=== PATIENT | male | born 1955 | race African-American/Black ===

== ENCOUNTER 2017-09-09 14:21 | Inpatient (IN) | payer OTHER ==
[2017-09-09 16:42] VITALS: BMI 20.5
--- NOTE | 2017-09-09 18:23 | HP ---
CIWA Score - CIWA Score Nausea/Vomitin-No Nausea/No Vomiting Muscle Tremors: 4-Moderate,w/Arms Extend Anxiety: 3 Agitation: 2 Paroxysmal Sweats: 4-Forehead w/Sweat Beads Orientation: 0-Oriented Tacttile Disturbances: 0-None Auditory Disturbances: 0-None Visual Disturbances: 2-Mild Sensitivity Headache: 2-Mild CIWA-Ar Total Score: 17 Admission ROS S - HPI Chief Complaint: "I don't feel good, I have the shakes, I am withdrawing real bad" Allergies/Adverse Reactions: Allergies Allergy/AdvReac Type Severity Reaction Status Date / Time No Known Allergies Allergy Verified 09/09/17 17:19 History of Present Illness: 62 yo male with hx nicotine dependence, cocaine and alcohol dependence presents here today with withdrawal symptoms for detox treatment. PMHX: HIV+ on medications, anxiety, depression. Denies suicidal / homicidal ideation or suicide attempts. Longest period sobriety 11 month, last detox 2014. Denies hx of seizures. Report hx of blackouts, last episode 10 years ago. Exam Limitations: No Limitations - Ebola screening Have you traveled outside of the country in the last 21 days: No Have you had contact with anyone from an Ebola affected area: No Have you been sick,other than usual withdrawal symptoms: No Do you have a fever: No - Review of Systems Constitutional: Chills, Loss of Appetite, Changes in sleep, Weakness, Unintentional Wgt. Loss EENT: reports: No Symptoms Reported Respiratory: reports: No Symptoms reported Cardiac: reports: No Symptoms Reported GI: reports: Poor Appetite, Poor Fluid Intake, Abdominal cramping Musculoskeletal: reports: Joint Pain Integumentary: reports: No Symptoms Reported Neuro: reports: Headache, Tingling, Tremors (generalize body trem), Weakness Endocrine: reports: Excessive Sweating Hematology: reports: No Symptoms Reported Psychiatric: reports: Orientated x3, Anxious Other Systems: Reviewed and Negative Patient History - Patient Medical History Hx Anemia: No Hx Asthma: No Hx Chronic Obstructive Pulmonary Disease (COPD): No Hx Cancer: No Hx Cardiac Disorders: No Hx Congestive Heart Failure: No Hx Hypertension: No Hx Hypercholesterolemia: No Hx Pacemaker: No HX Cerebrovascular Accident: No Hx Seizures: No Hx Dementia: No Hx Diabetes: No Hx Gastrointestinal Disorders: No Hx Liver Disease: No Hx Genitourinary Disorders: No Hx Sexually Transmitted Disorders: No Hx Renal Disease (ESRD): No Hx Thyroid Disease: No Hx Human Immunodeficiency Virus (HIV): Yes (on kaletra viread abacavir) Hx Hepatitis C: No Hx Depression: Yes Hx Suicide Attempt: No Hx Bipolar Disorder: No Hx Schizophrenia: No - Patient Surgical History Past Surgical History: No Hx Neurologic Surgery: No Hx Cataract Extraction: No Hx Cardiac Surgery: No Hx Lung Surgery: No Hx Breast Surgery: No Hx Breast Biopsy: No Hx Abdominal Surgery: No Hx Appendectomy: No Hx Cholecystectomy: No Hx Genitourinary Surgery: No Hx Section: No Hx Orthopedic Surgery: No Hx Hysterectomy: No Other Surgical History: RIGHT FOREARM SX DUE TO GLASS TRUAMA AT 18 YRS OLD. Anesthesia Reaction: No - PPD History Previous Implant?: Yes Documented Results: Negative w/proof Date: 03/10/15 PPD to be Administered?: Yes - Reproductive History Patient is a Female of Child Bearing Age (11 -55 yrs old): No - Smoking Cessation Smoking history: Current every day smoker Have you smoked in the past 12 months: Yes Aproximately how many cigarettes per day: 20 Hx Chewing Tobacco Use: No Initiated information on smoking cessation: Yes 'Breaking Loose' booklet given: 09/09/17 - Substance & Tx. History Hx Alcohol Use: Yes Hx Substance Use: Yes Substance Use Type: Alcohol, Cocaine Hx Substance Use Treatment: Yes ([facility] 2014) - Substances Abused Alcohol Route: Oral Frequency: Daily Amount used: liquor-1 pint, Age of first use: 14 Date of Last Use: 09/08/17 Cocaine Route: Smoking Frequency: Daily Amount used: 6 bags Age of first use: 36 Date of Last Use: 09/08/17 Family Disease History - Family Disease History Family Disease History: Diabetes: Mother, Heart Disease: Mother Admission Physical Exam S - Vital Signs Vital Signs: Vital Signs - 24 hr 09/09/17 16:40 Temperature 98.1 F Pulse Rate 105 H Respiratory 18 Rate Blood Pressure 122/70 - Physical General Appearance: Yes: Moderate Distress, Thin, Tremorous, Sweating HEENTM: Yes: EOMI, Hearing grossly Normal, Normal ENT Inspection, Pharynx Normal , Tm's normal, Rhinorrhea Respiratory: Yes: Chest Non-Tender, Lungs Clear, Normal Breath Sounds, No Respiratory Distress, No Accessory Muscle Use Neck: Yes: No masses,lesions,Nodules, Trachea in good position Breast: Yes: Breast Exam Deferred Cardiology: Yes: Regular Rhythm, Regular Rate Abdominal: Yes: Normal Bowel Sounds, Non Tender, Flat, Soft Genitourinary: Yes: Within Normal Limits Back: Yes: Muscle Spasm Musculoskeletal: Yes: full range of Motion, Gait Steady, Pelvis Stable Extremities: Yes: Normal Capillary Refill, Normal Inspection, Normal Range of Motion, Non-Tender 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 intact, Fully Oriented, Motor Strength 5/5, Other (tremors b/t upper extremities) Integumentary: Yes: Normal Color, Warm, Diaphoresis - Diagnostic (1) HIV (human immunodeficiency virus infection) Current Visit: Yes Status: Acute (2) Anxious mood Current Visit: Yes Status: Acute (3) Tremor due to drug withdrawal Current Visit: Yes Status: Acute (4) Alcohol dependence with withdrawal Current Visit: Yes Status: Acute Qualifiers: Complication of substance-induced condition: uncomplicated Qualified Code(s ): F10.230 - Alcohol dependence with withdrawal, uncomplicated (5) Cocaine dependence Current Visit: Yes Status: Chronic Qualifiers: Substance use status: uncomplicated Qualified Code(s): F14.20 - Cocaine dependence, uncomplicated (6) Weight decrease Current Visit: Yes Status: Acute Cleared for Admission [facility] - Detox or Rehab [facility] Level of Care: Medically Managed Detox Regimen/Protocol: Librium [facility] Breath Alcohol Content Breath Alcohol Content: 0 Urine Drug Screen - Results Drug Screen Negative: No Urine Drug Screen Results: BEBO-Cocaine
[2017-09-09] MEDS ORDERED: chlordiazePOXIDE HCL 25 MG CAPSULE PO ONE (18:30)
[2017-09-09] MEDS ORDERED: guaiFENesin/D-METHORPHAN HB 10 ML UNIT-DOSE CUPS PO PRN (18:30)
[2017-09-09] MEDS ORDERED: MAG HYDROX/AL HYDROX/SIMETH 30 ML UNIT-DOSE CUP PO PRN (18:30)
[2017-09-09] MEDS ORDERED: MENTHOL/PHENOL 1 EACH UD MM PRN (18:30)
[2017-09-09] MEDS ORDERED: P-EPHED 60MG/TRIPROLIDI 2.5MG TABLET PO PRN (18:30)
[2017-09-09] MEDS ORDERED: MAGNESIUM CITRATE 300 ML BOTTLE PO PRN (18:30)
[2017-09-09] MEDS ORDERED: chlordiazePOXIDE HCL 25 MG CAPSULE PO PRN (18:30)
[2017-09-09] MEDS ORDERED: NICOTINE POLACRILEX 2 MG GUM BC PRN (18:30)
[2017-09-09] MEDS ORDERED: MAGNESIUM HYDROX 2400MG/30ML ORAL SUSPENSION 30 ML CUP PO PRN (18:30)
[2017-09-09] MEDS ORDERED: LOPERAMIDE HCL 2 MG CAPSULE PO PRN (18:30)
[2017-09-09] MEDS ORDERED: hydrOXYzine PAMOATE 50 MG CAPSULE (FP) PO PRN (18:30)
[2017-09-09] MEDS: ACETAMINOPHEN 325 MG TABLET (FP) PO PRN (19:18)
[2017-09-09] MEDS ORDERED: MELATONIN 5 MG TABLETS PO PRN (22:00)
[2017-09-09] MEDS: THIAMINE HCL 100 MG TABLET (FP) PO SCH (22:06)
[2017-09-09] MEDS: BACLOFEN 10 MG TABLET (FP) PO SCH (22:07)
[2017-09-09] MEDS: IBUPROFEN 400 MG TABLET (FP) PO PRN (22:07)
[2017-09-09] MEDS: chlordiazePOXIDE HCL 25 MG CAPSULE PO SCH (22:49)
[2017-09-10] MEDS: chlordiazePOXIDE HCL 25 MG CAPSULE PO SCH ×5 (06:17→22:57)
[2017-09-10] MEDS: BACLOFEN 10 MG TABLET (FP) PO SCH ×3 (06:17→22:41)
[2017-09-10 08:47] LABS: URINE APPEARANCE TURBID; URINE BILIRUBIN NEGATIVE (<2.0 mg/dL); URINE BLOOD NEGATIVE (NEGATIVE); URINE GLUCOSE (UA) NEGATIVE (NEGATIVE); URINE KETONE NEGATIVE (NEGATIVE); URINE NITRITE NEGATIVE (NEGATIVE); URINE UROBILINOGEN 4.0 E.U/dl mg/dL (0.2-1.0)
[2017-09-10 09:05] LABS: URINE COLOR DK YELLOW; URINE LEUK ESTERASE 2+ (NEGATIVE); URINE PROTEIN 1+ (NEGATIVE)
[2017-09-10 09:12] LABS: EPI CELLS RARE /HPF (FEW); URINE BACTERIA MANY /hpf (NONE SEEN); URINE MUCUS MODERATE
[2017-09-10] MEDS: PRENATAL VITAMINS W/ FOLIC ACID TABLET (FP) PO SCH (09:56)
[2017-09-10] MEDS: NICOTINE 21 MG/24 HOURS TOPICAL PATCH TD SCH (09:56)
[2017-09-10] MEDS: IBUPROFEN 400 MG TABLET (FP) PO PRN (09:56)
[2017-09-10] MEDS ORDERED: PATIENT'S OWN MEDICATION (NON-FORMULARY) (Tenofovir Disoproxil Fumarate [Viread -] 300 MG) PO SCH (10:00)
[2017-09-10] MEDS ORDERED: RITONAVIR/LOPINAVIR 50MG/200MG 1 COMBO TABLET PO SCH (10:00)
[2017-09-10] MEDS ORDERED: ABACAVIR SULFATE 300 MG PO SCH ×2 (10:00→22:00)
[2017-09-10 10:50] LABS: HEMATOCRIT 39.8 % (35.4-49); HEMOGLOBIN 13.5 GM/dL (11.7-16.9); MCHC 34.1 g/dl (32.0-35.9); MEAN CELL VOLUME 99.7 fl (80-96); MEAN PLT VOLUME 9.4 fl (7.5-11.1); PLATELET COUNT 127 K/MM3 (134-434); RBC 3.99 M/mm3 (4.00-5.60); RDW 13.5 % (11.9-15.9); WHITE BLOOD COUNT 7.9 K/mm3 (4.0-10.0)
--- NOTE | 2017-09-10 10:54 | EKG ---
Test Reason : Blood Pressure : / mmHG Vent. Rate : 092 BPM Atrial Rate : 092 BPM P-R Int : 128 ms QRS Dur : 100 ms QT Int : 322 ms P-R-T Axes : 078 074 067 degrees QTc Int : 398 ms NORMAL SINUS RHYTHM BIATRIAL ENLARGEMENT ABNORMAL ECG NO PREVIOUS ECGS AVAILABLE Confirmed by DESIRE PEREZ MD ([id number]) on 09/10/2017 10:53:30 AM Referred By: Confirmed By:DESIRE PEREZ MD
[2017-09-10 11:05] LABS: CALCIUM 8.2 mg/dL (8.5-10.1); CHLORIDE 104 mmol/L (98-107); POTASSIUM 4.1 mmol/L (3.5-5.1); SODIUM 139 mmol/L (136-145)
[2017-09-10 11:10] LABS: ALBUMIN 3.1 g/dl (3.4-5.0); ALK PHOS 72 U/L (45-117); ANION GAP 8 (8-16); BILIRUBIN,TOTAL 0.6 mg/dL (0.2-1.0); BLOOD UREA NITROGEN 25 mg/dL (7-18); CO2 27 mmol/L (21-32); CREATININE 1.6 mg/dL (0.7-1.3); GLUCOSE,RANDOM 86 mg/dL (74-106); SGOT/AST 18 U/L (15-37); SGPT/ALT 15 U/L (12-78)
[2017-09-10] MEDS ORDERED: TENOFOVIR DISOPROXIL FUMARATE 300 MG TABLET PO SCH (12:05)
--- NOTE | 2017-09-10 12:08 | PN ---
[facility] CIWA - CIWA Score Nausea/Vomitin-No Nausea/No Vomiting Muscle Tremors: 4-Moderate,w/Arms Extend Anxiety: 4-Mod. Anxious/Guarded Agitation: 2 Paroxysmal Sweats: 1-Minimal Palms Moist Orientation: 0-Oriented Tacttile Disturbances: 3-Moderate Itch/Numb/Burn (BODY ACHES) Auditory Disturbances: 0-None Visual Disturbances: 0-None Headache: 0-None Present CIWA-Ar Total Score: 14 S Progress Note (SOAP) Subjective: ANXIETY,C/O PAIN ON ENTIRE BODY AND WEAKNESS.LOSS OF APPETITE. DENIES N/V/D. Objective: 09/10/17 12:04 Vital Signs Temperature 96.8 F L 09/10/17 09:25 Pulse Rate 65 09/10/17 09:25 Respiratory Rate 18 09/10/17 09:25 Blood Pressure 105/81 09/10/17 09:25 O2 Sat by Pulse Oximetry (%) Laboratory Last Values WBC 7.9 K/mm3 (4.0-10.0) D 09/10/17 07:00 RBC 3.99 M/mm3 (4.00-5.60) L 09/10/17 07:00 Hgb 13.5 GM/dL (11.7-16.9) 09/10/17 07:00 Hct 39.8 % (35.4-49) 09/10/17 07:00 MCV 99.7 fl (80-96) H 09/10/17 07:00 MCH 34.0 pg (25.7-33.7) H 09/10/17 07:00 MCHC 34.1 g/dl (32.0-35.9) 09/10/17 07:00 RDW 13.5 % (11.9-15.9) 09/10/17 07:00 Plt Count 127 K/MM3 (134-434) L 09/10/17 07:00 MPV 9.4 fl (7.5-11.1) 09/10/17 07:00 Sodium 139 mmol/L (136-145) 09/10/17 07:00 Potassium 4.1 mmol/L (3.5-5.1) 09/10/17 07:00 Chloride 104 mmol/L (98-107) 09/10/17 07:00 Carbon Dioxide 27 mmol/L (21-32) 09/10/17 07:00 Anion Gap 8 (8-16) 09/10/17 07:00 BUN 25 mg/dL (7-18) H D 09/10/17 07:00 Creatinine 1.6 mg/dL (0.7-1.3) H D 09/10/17 07:00 Creat Clearance w eGFR 43.87 (>60) 09/10/17 07:00 Random Glucose 86 mg/dL (74-106) 09/10/17 07:00 Calcium 8.2 mg/dL (8.5-10.1) L 09/10/17 07:00 Total Bilirubin 0.6 mg/dL (0.2-1.0) D 09/10/17 07:00 AST 18 U/L (15-37) 09/10/17 07:00 ALT 15 U/L (12-78) D 09/10/17 07:00 Alkaline Phosphatase 72 U/L (45-117) D 09/10/17 07:00 Total Protein 7.0 g/dl (6.4-8.2) 09/10/17 07:00 Albumin 3.1 g/dl (3.4-5.0) L 09/10/17 07:00 Urine Color Dk yellow 09/09/17 22:00 Urine Appearance Turbid 09/09/17 22:00 Urine pH 5.0 (5.0-8.0) 09/09/17 22:00 Ur Specific [place] 1.025 (1.001-1.035) 09/09/17 22:00 Urine Protein 1+ (NEGATIVE) H 09/09/17 22:00 Urine Glucose (UA) Negative (NEGATIVE) 09/09/17 22:00 Urine Ketones Negative (NEGATIVE) 09/09/17 22:00 Urine Blood Negative (NEGATIVE) 09/09/17 22:00 Urine Nitrite Negative (NEGATIVE) 09/09/17 22:00 Urine Bilirubin Negative (<2.0 mg/dL) 09/09/17 22:00 Urine Urobilinogen 4.0 e.u/dl mg/dL (0.2-1.0) 09/09/17 22:00 Ur Leukocyte Esterase 2+ (NEGATIVE) H 09/09/17 22:00 Urine WBC (Auto) 29 /hpf (3-5) 09/09/17 22:00 Urine RBC (Auto) 3 /hpf (0-3) 09/09/17 22:00 Ur Epithelial Cells Rare /HPF (FEW) 09/09/17 22:00 Urine Bacteria Many /hpf (NONE SEEN) 09/09/17 22:00 Urine Mucus Moderate 09/09/17 22:00 UA NOTED BUN/CR NOTED Assessment: 09/10/17 12:04 WITHDRAWAL SX Plan: CONTINUE DETOX CHANGE: VIREAD 300 MG PO Q48H. INCREASE PO FLUIDS REPEAT LABS
--- NOTE | 2017-09-10 12:39 | CONSULT ---
[facility] Psychiatric Consult - Data Date of interview: 09/10/17 Admission source: [facility] Identifying data: Readmission to [facility] for this 62 y/o AA male seeking detox treatment on for alcohol and cocaine (crack) dependence.Patient is ,a father of one,domiciled unemployed and supported on SSI benefits. Substance Abuse History: Confirmed by patient in this interview.Details in the current [facility] report that follows : Smoking history: Current every day smoker. Have you smoked in the past 12 months: Yes. Aproximately how many cigarettes per day: 20. Hx Chewing Tobacco Use: No. Initiated information on smoking cessation: Yes. 'Breaking Loose' booklet given: 09/09/17. - Substance & Tx. History. Hx Alcohol Use: Yes. Hx Substance Use: Yes. Substance Use Type: Alcohol, Cocaine. Hx Substance Use Treatment: Yes ([facility] 2014). - Substances Abused. Alcohol. Route: Oral. Frequency: Daily. Amount used: liquor-1 pint,. Age of first use: 14. Date of Last Use: 09/08/17. Cocaine. Route: Smoking. Frequency: Daily. Amount used: 6 bags. Age of first use: 36. Date of Last Use: 09/08/17 Medical History: HIV infection (on HAART medications),weight loss and chronic joint pain. Psychiatric History: Patient denies history of psychiatric hospitalizations or suicide attempts.No prior exposure to psychotropic medications.Mr santamaria denies past/present contact with psychiatric OPD care provider. Physical/Sexual Abuse/Trauma History: No history. Additional Comment: Urine Drug Screen Results: BEBO-Cocaine.Noted. Mental Status Exam - Mental Status Exam Alert and Oriented to: Time, Place, Person Cognitive Function: Good Patient Appearance: Well Groomed Mood: Withdrawn, Apprehensive Affect: Mood Congruent Patient Behavior: Sedated (mild sedation), Fatigued Speech Pattern: Clear, Delayed Voice Loudness: Moderately Soft/Quiet Thought Process: Intact, Goal Oriented Hallucinations: Denies Suicidal Ideation: Denies Homicidal Ideation: Denies Insight/Judgement: Poor Sleep: Poorly, Difficulty falling asleep Appetite: Poor, Weight loss Gait/Station: Other (not observed ; supine for duration of interview ; patient admits to experiencing difficulty to ambulate; uses a wheelchair) Psychiatric Findings - Problem List ([place] 1, 2,3) (1) Alcohol dependence with withdrawal Current Visit: Yes Status: Acute Qualifiers: Complication of substance-induced condition: uncomplicated Qualified Code(s ): F10.230 - Alcohol dependence with withdrawal, uncomplicated (2) Cocaine dependence Current Visit: Yes Status: Acute Qualifiers: Substance use status: uncomplicated Qualified Code(s): F14.20 - Cocaine dependence, uncomplicated (3) Nicotine dependence Current Visit: Yes Status: Acute (4) Substance induced mood disorder Current Visit: Yes Status: Acute (5) Insomnia Current Visit: Yes Status: Acute Comment: Mild. - Initial Treatment Plan Initial Treatment Plan: Psychoeducation.Sleep hygiene.Detoxification in progress.Insomnia is addressed with melatonin 5 mg po hs prn.Discussed with patient.Mr santamaria agrees with this careplan.Observation.Falls precautions.
[2017-09-10] MEDS: RITONAVIR/LOPINAVIR 50MG/200MG 1 COMBO TABLET PO SCH ×2 (12:49→22:42)
[2017-09-10] MEDS: TENOFOVIR DISOPROXIL FUMARATE 300 MG TABLET PO SCH (12:50)
[2017-09-10] MEDS: ABACAVIR SULFATE 300 MG TABLET PO SCH ×2 (12:52→22:41)
[2017-09-10] MEDS: ACETAMINOPHEN 325 MG TABLET (FP) PO PRN (18:08)
[2017-09-10 22:03] LABS: URINE APPEARANCE CLEAR; URINE BILIRUBIN NEGATIVE (<2.0 mg/dL); URINE BLOOD NEGATIVE (NEGATIVE); URINE COLOR YELLOW; URINE GLUCOSE (UA) NEGATIVE (NEGATIVE); URINE KETONE NEGATIVE (NEGATIVE); URINE LEUK ESTERASE TRACE (NEGATIVE); URINE NITRITE NEGATIVE (NEGATIVE); URINE UROBILINOGEN 4.0 E.U/dl mg/dL (0.2-1.0)
[2017-09-10 22:13] LABS: URINE PROTEIN 1+ (NEGATIVE)
[2017-09-10 22:37] LABS: URINE MUCUS RARE
[2017-09-10] MEDS: THIAMINE HCL 100 MG TABLET (FP) PO SCH (22:40)
[2017-09-11] MEDS: chlordiazePOXIDE HCL 25 MG CAPSULE PO SCH ×3 (06:00→18:35)
[2017-09-11] MEDS: BACLOFEN 10 MG TABLET (FP) PO SCH ×3 (07:01→22:53)
[2017-09-11] MEDS: ACETAMINOPHEN 325 MG TABLET (FP) PO PRN (07:07)
[2017-09-11] MEDS: RITONAVIR/LOPINAVIR 50MG/200MG 1 COMBO TABLET PO SCH ×2 (09:53→22:55)
[2017-09-11] MEDS: ABACAVIR SULFATE 300 MG TABLET PO SCH ×2 (09:53→22:53)
[2017-09-11] MEDS: PRENATAL VITAMINS W/ FOLIC ACID TABLET (FP) PO SCH (09:53)
[2017-09-11] MEDS: NICOTINE 21 MG/24 HOURS TOPICAL PATCH TD SCH (09:56)
[2017-09-11 10:54] LABS: CHLORIDE 109 mmol/L (98-107); SODIUM 141 mmol/L (136-145)
[2017-09-11 11:02] LABS: ALBUMIN 3.1 g/dl (3.4-5.0); ALK PHOS 79 U/L (45-117); ANION GAP 5 (8-16); BILIRUBIN,TOTAL 0.4 mg/dL (0.2-1.0); BLOOD UREA NITROGEN 20 mg/dL (7-18); CALCIUM 8.2 mg/dL (8.5-10.1); CO2 27 mmol/L (21-32); CREATININE 1.1 mg/dL (0.7-1.3); GLUCOSE,RANDOM 80 mg/dL (74-106); SGOT/AST 21 U/L (15-37); SGPT/ALT 25 U/L (12-78); TOT PROT 7.3 g/dl (6.4-8.2)
[2017-09-11 11:15] LABS: HEMATOCRIT 42.1 % (35.4-49); HEMOGLOBIN 14.3 GM/dL (11.7-16.9); MCHC 33.9 g/dl (32.0-35.9); MEAN CELL VOLUME 100.3 fl (80-96); MEAN PLT VOLUME 9.7 fl (7.5-11.1); PLATELET COUNT 121 K/MM3 (134-434); RDW 13.4 % (11.9-15.9); WHITE BLOOD COUNT 4.4 K/mm3 (4.0-10.0)
--- NOTE | 2017-09-11 16:48 | PN ---
[facility] CIWA - CIWA Score Nausea/Vomitin-No Nausea/No Vomiting Muscle Tremors: None Anxiety: 5 Agitation: 0-Normal Activity Paroxysmal Sweats: 3 Orientation: 2-Disoriented Date<2 days Tacttile Disturbances: 3-Moderate Itch/Numb/Burn Auditory Disturbances: 0-None Visual Disturbances: 2-Mild Sensitivity Headache: 0-None Present CIWA-Ar Total Score: 15 S Progress Note (SOAP) Subjective: Constipation, Cold sensations, Body Aches, Tremors, Anxious. Objective: PATIENT A & O X 2 (UNCERTAIN ABOUT CURRENT DAY / DATE). NO ACUTE DISTRESS. 09/11/17 16:46 Vital Signs Temperature 96.1 F L 09/11/17 13:14 Pulse Rate 59 L 09/11/17 13:14 Respiratory Rate 18 09/11/17 13:14 Blood Pressure 118/77 09/11/17 13:14 O2 Sat by Pulse Oximetry (%) Laboratory Tests 09/09/17 09/10/17 09/10/17 22:00 07:00 07:00 WBC 7.9 D RBC 3.99 L Hgb 13.5 Hct 39.8 MCV 99.7 H MCH 34.0 H MCHC 34.1 RDW 13.5 Plt Count 127 L MPV 9.4 Sodium 139 Potassium 4.1 Chloride 104 Carbon Dioxide 27 Anion Gap 8 BUN 25 H D Creatinine 1.6 H D Creat Clearance w eGFR 43.87 Random Glucose 86 Calcium 8.2 L Total Bilirubin 0.6 D AST 18 ALT 15 D Alkaline Phosphatase 72 D Total Protein 7.0 Albumin 3.1 L Urine Color Dk yellow Urine Appearance Turbid Urine pH 5.0 Ur Specific [place] 1.025 Urine Protein 1+ H Urine Glucose (UA) Negative Urine Ketones Negative Urine Blood Negative Urine Nitrite Negative Urine Bilirubin Negative Urine Urobilinogen 4.0 e.u/dl Ur Leukocyte Esterase 2+ H Urine WBC (Auto) 29 Urine RBC (Auto) 3 Ur Epithelial Cells Rare Urine Bacteria Many Urine Mucus Moderate 09/10/17 09/11/17 09/11/17 Unknown 07:00 07:00 WBC 4.4 D RBC 4.20 Hgb 14.3 Hct 42.1 MCV 100.3 H MCH 34.0 H MCHC 33.9 RDW 13.4 Plt Count 121 L MPV 9.7 Sodium 141 Potassium 4.0 Chloride 109 H Carbon Dioxide 27 Anion Gap 5 L BUN 20 H Creatinine 1.1 D Creat Clearance w eGFR > 60 Random Glucose 80 Calcium 8.2 L Total Bilirubin 0.4 D AST 21 ALT 25 D Alkaline Phosphatase 79 Total Protein 7.3 Albumin 3.1 L Urine Color Yellow Urine Appearance Clear Urine pH 5.0 Ur Specific [place] 1.028 Urine Protein 1+ H Urine Glucose (UA) Negative Urine Ketones Negative Urine Blood Negative Urine Nitrite Negative Urine Bilirubin Negative Urine Urobilinogen 4.0 e.u/dl Ur Leukocyte Esterase Trace Urine WBC (Auto) 12 Urine RBC (Auto) 1 Ur Epithelial Cells Urine Bacteria Urine Mucus Rare LABS NOTED. Assessment: 09/11/17 16:47 WITHDRAWAL SYMPTOMS. Plan: CONTINUE DETOX. INCREASE DAILY PO FLUID INTAKE.
[2017-09-11] MEDS: THIAMINE HCL 100 MG TABLET (FP) PO SCH (22:53)
[2017-09-11] MEDS: chlordiazePOXIDE 5 MG CAPSULE PO SCH (22:54)
[2017-09-12] MEDS: BACLOFEN 10 MG TABLET (FP) PO SCH ×3 (06:08→22:40)
[2017-09-12] MEDS: chlordiazePOXIDE 5 MG CAPSULE PO SCH ×4 (06:08→17:48)
[2017-09-12] MEDS: RITONAVIR/LOPINAVIR 50MG/200MG 1 COMBO TABLET PO SCH ×2 (11:04→22:39)
[2017-09-12] MEDS: PRENATAL VITAMINS W/ FOLIC ACID TABLET (FP) PO SCH (11:04)
[2017-09-12] MEDS: ABACAVIR SULFATE 300 MG TABLET PO SCH ×2 (11:05→22:39)
[2017-09-12] MEDS: SULFAMETHOXAZOLE/TRIMETHOPRIM 800MG/160MG D.S. TABLET PO SCH ×2 (11:06→22:39)
[2017-09-12] MEDS: NICOTINE 21 MG/24 HOURS TOPICAL PATCH TD SCH (11:06)
[2017-09-12] MEDS: TENOFOVIR DISOPROXIL FUMARATE 300 MG TABLET PO SCH (12:29)
--- NOTE | 2017-09-12 13:21 | PN ---
[facility] Progress Note (SOAP) Subjective: PT IS OOB AMBULATING WITH NO ACUTE DISTRESS. MUCH IMPROVED TODAY AND WEAKNESS RESOLVING. PT STATES WAS ON BACTRIM FOR ABNORMAL UA AND REQUESTS TO CONTINUE. Objective: 09/12/17 13:16 Vital Signs Temperature 97.8 F 09/12/17 09:13 Pulse Rate 82 09/12/17 09:13 Respiratory Rate 18 09/12/17 09:13 Blood Pressure 127/78 09/12/17 09:13 O2 Sat by Pulse Oximetry (%) Laboratory Last Values WBC 4.4 K/mm3 (4.0-10.0) D 09/11/17 07:00 RBC 4.20 M/mm3 (4.00-5.60) 09/11/17 07:00 Hgb 14.3 GM/dL (11.7-16.9) 09/11/17 07:00 Hct 42.1 % (35.4-49) 09/11/17 07:00 MCV 100.3 fl (80-96) H 09/11/17 07:00 MCH 34.0 pg (25.7-33.7) H 09/11/17 07:00 MCHC 33.9 g/dl (32.0-35.9) 09/11/17 07:00 RDW 13.4 % (11.9-15.9) 09/11/17 07:00 Plt Count 121 K/MM3 (134-434) L 09/11/17 07:00 MPV 9.7 fl (7.5-11.1) 09/11/17 07:00 Sodium 141 mmol/L (136-145) 09/11/17 07:00 Potassium 4.0 mmol/L (3.5-5.1) 09/11/17 07:00 Chloride 109 mmol/L (98-107) H 09/11/17 07:00 Carbon Dioxide 27 mmol/L (21-32) 09/11/17 07:00 Anion Gap 5 (8-16) L 09/11/17 07:00 BUN 20 mg/dL (7-18) H 09/11/17 07:00 Creatinine 1.1 mg/dL (0.7-1.3) D 09/11/17 07:00 Creat Clearance w eGFR > 60 (>60) 09/11/17 07:00 Random Glucose 80 mg/dL (74-106) 09/11/17 07:00 Calcium 8.2 mg/dL (8.5-10.1) L 09/11/17 07:00 Total Bilirubin 0.4 mg/dL (0.2-1.0) D 09/11/17 07:00 AST 21 U/L (15-37) 09/11/17 07:00 ALT 25 U/L (12-78) D 09/11/17 07:00 Alkaline Phosphatase 79 U/L (45-117) 09/11/17 07:00 Total Protein 7.3 g/dl (6.4-8.2) 09/11/17 07:00 Albumin 3.1 g/dl (3.4-5.0) L 09/11/17 07:00 Urine Color Yellow 09/10/17 Unknown Urine Appearance Clear 09/10/17 Unknown Urine pH 5.0 (5.0-8.0) 09/10/17 Unknown Ur Specific [place] 1.028 (1.001-1.035) 09/10/17 Unknown Urine Protein 1+ (NEGATIVE) H 09/10/17 Unknown Urine Glucose (UA) Negative (NEGATIVE) 09/10/17 Unknown Urine Ketones Negative (NEGATIVE) 09/10/17 Unknown Urine Blood Negative (NEGATIVE) 09/10/17 Unknown Urine Nitrite Negative (NEGATIVE) 09/10/17 Unknown Urine Bilirubin Negative (<2.0 mg/dL) 09/10/17 Unknown Urine Urobilinogen 4.0 e.u/dl mg/dL (0.2-1.0) 09/10/17 Unknown Ur Leukocyte Esterase Trace (NEGATIVE) 09/10/17 Unknown Urine WBC (Auto) 12 /hpf (3-5) 09/10/17 Unknown Urine RBC (Auto) 1 /hpf (0-3) 09/10/17 Unknown Ur Epithelial Cells Rare /HPF (FEW) 09/09/17 22:00 Urine Bacteria Many /hpf (NONE SEEN) 09/09/17 22:00 Urine Mucus Rare 09/10/17 Unknown RPR Titer Nonreactive (NONREACTIVE) 09/10/17 07:00 Laboratory Tests 09/09/17 09/10/17 09/10/17 22:00 07:00 07:00 WBC 7.9 D RBC 3.99 L Hgb 13.5 Hct 39.8 MCV 99.7 H MCH 34.0 H MCHC 34.1 RDW 13.5 Plt Count 127 L MPV 9.4 Sodium 139 Potassium 4.1 Chloride 104 Carbon Dioxide 27 Anion Gap 8 BUN 25 H D Creatinine 1.6 H D Creat Clearance w eGFR 43.87 Random Glucose 86 Calcium 8.2 L Total Bilirubin 0.6 D AST 18 ALT 15 D Alkaline Phosphatase 72 D Total Protein 7.0 Albumin 3.1 L Urine Color Dk yellow Urine Appearance Turbid Urine pH 5.0 Ur Specific [place] 1.025 Urine Protein 1+ H Urine Glucose (UA) Negative Urine Ketones Negative Urine Blood Negative Urine Nitrite Negative Urine Bilirubin Negative Urine Urobilinogen 4.0 e.u/dl Ur Leukocyte Esterase 2+ H Urine WBC (Auto) 29 Urine RBC (Auto) 3 Ur Epithelial Cells Rare Urine Bacteria Many Urine Mucus Moderate RPR Titer 09/10/17 09/10/17 09/11/17 07:00 Unknown 07:00 WBC RBC Hgb Hct MCV MCH MCHC RDW Plt Count MPV Sodium 141 Potassium 4.0 Chloride 109 H Carbon Dioxide 27 Anion Gap 5 L BUN 20 H Creatinine 1.1 D Creat Clearance w eGFR > 60 Random Glucose 80 Calcium 8.2 L Total Bilirubin 0.4 D AST 21 ALT 25 D Alkaline Phosphatase 79 Total Protein 7.3 Albumin 3.1 L Urine Color Yellow Urine Appearance Clear Urine pH 5.0 Ur Specific [place] 1.028 Urine Protein 1+ H Urine Glucose (UA) Negative Urine Ketones Negative Urine Blood Negative Urine Nitrite Negative Urine Bilirubin Negative Urine Urobilinogen 4.0 e.u/dl Ur Leukocyte Esterase Trace Urine WBC (Auto) 12 Urine RBC (Auto) 1 Ur Epithelial Cells Urine Bacteria Urine Mucus Rare RPR Titer Nonreactive 09/11/17 07:00 WBC 4.4 D RBC 4.20 Hgb 14.3 Hct 42.1 MCV 100.3 H MCH 34.0 H MCHC 33.9 RDW 13.4 Plt Count 121 L MPV 9.7 Sodium Potassium Chloride Carbon Dioxide Anion Gap BUN Creatinine Creat Clearance w eGFR Random Glucose Calcium Total Bilirubin AST ALT Alkaline Phosphatase Total Protein Albumin Urine Color Urine Appearance Urine pH Ur Specific [place] Urine Protein Urine Glucose (UA) Urine Ketones Urine Blood Urine Nitrite Urine Bilirubin Urine Urobilinogen Ur Leukocyte Esterase Urine WBC (Auto) Urine RBC (Auto) Ur Epithelial Cells Urine Bacteria Urine Mucus RPR Titer Assessment: 09/12/17 13:17 WITHDRAWAL SX Plan: CONTINUE DETOX
[2017-09-12] MEDS: THIAMINE HCL 100 MG TABLET (FP) PO SCH (22:39)
[2017-09-12] MEDS: chlordiazePOXIDE HCL 10 MG CAPSULE PO SCH (22:41)
[2017-09-13] MEDS: chlordiazePOXIDE HCL 10 MG CAPSULE PO SCH ×3 (06:00→18:18)
[2017-09-13] MEDS: BACLOFEN 10 MG TABLET (FP) PO SCH ×3 (07:42→23:06)
[2017-09-13] MEDS: NICOTINE 21 MG/24 HOURS TOPICAL PATCH TD SCH (12:18)
[2017-09-13] MEDS: PRENATAL VITAMINS W/ FOLIC ACID TABLET (FP) PO SCH (12:18)
[2017-09-13] MEDS: ABACAVIR SULFATE 300 MG TABLET PO SCH ×2 (12:18→23:06)
[2017-09-13] MEDS: RITONAVIR/LOPINAVIR 50MG/200MG 1 COMBO TABLET PO SCH ×2 (12:18→23:05)
[2017-09-13] MEDS: SULFAMETHOXAZOLE/TRIMETHOPRIM 800MG/160MG D.S. TABLET PO SCH ×2 (12:18→23:05)
--- NOTE | 2017-09-13 18:07 | PN ---
[facility] Progress Note (SOAP) Subjective: Anxious, Fatigue. Objective: PATIENT A & O X 3, OBSERVED AMBULATING ON UNIT. NO ACUTE DISTRESS. 09/13/17 18:02 Vital Signs Temperature 98.3 F 09/13/17 15:37 Pulse Rate 67 09/13/17 15:37 Respiratory Rate 18 09/13/17 15:37 Blood Pressure 109/68 09/13/17 15:37 O2 Sat by Pulse Oximetry (%) Laboratory Tests 09/09/17 09/10/17 09/10/17 22:00 07:00 07:00 WBC 7.9 D RBC 3.99 L Hgb 13.5 Hct 39.8 MCV 99.7 H MCH 34.0 H MCHC 34.1 RDW 13.5 Plt Count 127 L MPV 9.4 Sodium 139 Potassium 4.1 Chloride 104 Carbon Dioxide 27 Anion Gap 8 BUN 25 H D Creatinine 1.6 H D Creat Clearance w eGFR 43.87 Random Glucose 86 Calcium 8.2 L Total Bilirubin 0.6 D AST 18 ALT 15 D Alkaline Phosphatase 72 D Total Protein 7.0 Albumin 3.1 L Urine Color Dk yellow Urine Appearance Turbid Urine pH 5.0 Ur Specific [place] 1.025 Urine Protein 1+ H Urine Glucose (UA) Negative Urine Ketones Negative Urine Blood Negative Urine Nitrite Negative Urine Bilirubin Negative Urine Urobilinogen 4.0 e.u/dl Ur Leukocyte Esterase 2+ H Urine WBC (Auto) 29 Urine RBC (Auto) 3 Ur Epithelial Cells Rare Urine Bacteria Many Urine Mucus Moderate RPR Titer 09/10/17 09/10/17 09/11/17 07:00 Unknown 07:00 WBC RBC Hgb Hct MCV MCH MCHC RDW Plt Count MPV Sodium 141 Potassium 4.0 Chloride 109 H Carbon Dioxide 27 Anion Gap 5 L BUN 20 H Creatinine 1.1 D Creat Clearance w eGFR > 60 Random Glucose 80 Calcium 8.2 L Total Bilirubin 0.4 D AST 21 ALT 25 D Alkaline Phosphatase 79 Total Protein 7.3 Albumin 3.1 L Urine Color Yellow Urine Appearance Clear Urine pH 5.0 Ur Specific [place] 1.028 Urine Protein 1+ H Urine Glucose (UA) Negative Urine Ketones Negative Urine Blood Negative Urine Nitrite Negative Urine Bilirubin Negative Urine Urobilinogen 4.0 e.u/dl Ur Leukocyte Esterase Trace Urine WBC (Auto) 12 Urine RBC (Auto) 1 Ur Epithelial Cells Urine Bacteria Urine Mucus Rare RPR Titer Nonreactive 04/12/18 07:00 WBC 4.4 D RBC 4.20 Hgb 14.3 Hct 42.1 MCV 100.3 H MCH 34.0 H MCHC 33.9 RDW 13.4 Plt Count 121 L MPV 9.7 Sodium Potassium Chloride Carbon Dioxide Anion Gap BUN Creatinine Creat Clearance w eGFR Random Glucose Calcium Total Bilirubin AST ALT Alkaline Phosphatase Total Protein Albumin Urine Color Urine Appearance Urine pH Ur Specific [place] Urine Protein Urine Glucose (UA) Urine Ketones Urine Blood Urine Nitrite Urine Bilirubin Urine Urobilinogen Ur Leukocyte Esterase Urine WBC (Auto) Urine RBC (Auto) Ur Epithelial Cells Urine Bacteria Urine Mucus RPR Titer LABS NOTED. Assessment: 09/13/17 18:03 WITHDRAWAL SYMPTOMS. Plan: CONTINUE DETOX. PATIENT ORIGINALLY SCHEDULED FOR DISCHARGE TODAY. HOWEVER, PATIENT PLANNED ON GOING TO [facility], HOWEVER, NO FORMAL ARRANGEMENTS FOR ADMISSION OR TRANSPORTATION ARRANGEMENTS MADE FOR PATIENT. FOR THIS REASON AND DUE TO LINGERING DETOX SYMPTOMS AND DUE TO CURRENT AMBULATORY DIFFICULTIES, PATIENT TO REMAIN ON DETOX UNIT FOR TODAY AND WILL BE RE-EVALUATED TOMORROW DISCHARGE.
[2017-09-13] MEDS: THIAMINE HCL 100 MG TABLET (FP) PO SCH (23:06)
[2017-09-14] MEDS: BACLOFEN 10 MG TABLET (FP) PO SCH ×3 (06:18→23:04)
[2017-09-14] MEDS: SULFAMETHOXAZOLE/TRIMETHOPRIM 800MG/160MG D.S. TABLET PO SCH ×2 (11:16→23:04)
[2017-09-14] MEDS: PRENATAL VITAMINS W/ FOLIC ACID TABLET (FP) PO SCH (11:16)
[2017-09-14] MEDS: RITONAVIR/LOPINAVIR 50MG/200MG 1 COMBO TABLET PO SCH ×2 (11:16→23:04)
[2017-09-14] MEDS: NICOTINE 21 MG/24 HOURS TOPICAL PATCH TD SCH (11:16)
[2017-09-14] MEDS: ABACAVIR SULFATE 300 MG TABLET PO SCH ×2 (11:17→23:05)
--- NOTE | 2017-09-14 12:40 | PN ---
[facility] Progress Note (SOAP) Subjective: irritable sweats interrupted sleep Objective: 09/14/17 12:39 Vital Signs Temperature 96.0 F L 09/14/17 10:48 Pulse Rate 64 09/14/17 10:48 Respiratory Rate 18 09/14/17 10:48 Blood Pressure 101/66 09/14/17 10:48 O2 Sat by Pulse Oximetry (%) aaox3 ambulating no acute distress Assessment: 09/14/17 12:39 withdrawal sx Plan: continue detox increase fluids d/c in am
[2017-09-14] MEDS: TENOFOVIR DISOPROXIL FUMARATE 300 MG TABLET PO SCH (15:28)
[2017-09-14] MEDS: THIAMINE HCL 100 MG TABLET (FP) PO SCH (23:05)
[2017-09-15] MEDS: BACLOFEN 10 MG TABLET (FP) PO SCH (06:46)
[2017-09-15 09:25] VITALS: BP 121/83; PULSE 72; TEMP 97.6
[2017-09-15] MEDS: SULFAMETHOXAZOLE/TRIMETHOPRIM 800MG/160MG D.S. TABLET PO SCH (11:17)
[2017-09-15] MEDS: ABACAVIR SULFATE 300 MG TABLET PO SCH (11:17)
[2017-09-15] MEDS: PRENATAL VITAMINS W/ FOLIC ACID TABLET (FP) PO SCH (11:17)
[2017-09-15] MEDS: NICOTINE 21 MG/24 HOURS TOPICAL PATCH TD SCH (11:17)
[2017-09-15] MEDS: RITONAVIR/LOPINAVIR 50MG/200MG 1 COMBO TABLET PO SCH (11:17)
--- NOTE | 2017-09-15 11:48 | PN ---
S Progress Note (SOAP) Subjective: DETOX COMPLETED, ALERT O X 3. PT REFUSED DETOX BED HERE WHEN OFFERED PER COUNSELOR PARMJIT KIRBY. Objective: 09/15/17 11:44 Vital Signs Temperature 97.6 F 09/15/17 09:24 Pulse Rate 72 09/15/17 09:24 Respiratory Rate 18 09/15/17 09:24 Blood Pressure 121/83 09/15/17 09:24 O2 Sat by Pulse Oximetry (%) Laboratory Last Values WBC 4.4 K/mm3 (4.0-10.0) D 09/11/17 07:00 RBC 4.20 M/mm3 (4.00-5.60) 09/11/17 07:00 Hgb 14.3 GM/dL (11.7-16.9) 09/11/17 07:00 Hct 42.1 % (35.4-49) 09/11/17 07:00 MCV 100.3 fl (80-96) H 09/11/17 07:00 MCH 34.0 pg (25.7-33.7) H 09/11/17 07:00 MCHC 33.9 g/dl (32.0-35.9) 09/11/17 07:00 RDW 13.4 % (11.9-15.9) 09/11/17 07:00 Plt Count 121 K/MM3 (134-434) L 09/11/17 07:00 MPV 9.7 fl (7.5-11.1) 09/11/17 07:00 Sodium 141 mmol/L (136-145) 09/11/17 07:00 Potassium 4.0 mmol/L (3.5-5.1) 09/11/17 07:00 Chloride 109 mmol/L (98-107) H 09/11/17 07:00 Carbon Dioxide 27 mmol/L (21-32) 09/11/17 07:00 Anion Gap 5 (8-16) L 09/11/17 07:00 BUN 20 mg/dL (7-18) H 09/11/17 07:00 Creatinine 1.1 mg/dL (0.7-1.3) D 09/11/17 07:00 Creat Clearance w eGFR > 60 (>60) 09/11/17 07:00 Random Glucose 80 mg/dL (74-106) 09/11/17 07:00 Calcium 8.2 mg/dL (8.5-10.1) L 09/11/17 07:00 Total Bilirubin 0.4 mg/dL (0.2-1.0) D 09/11/17 07:00 AST 21 U/L (15-37) 09/11/17 07:00 ALT 25 U/L (12-78) D 09/11/17 07:00 Alkaline Phosphatase 79 U/L (45-117) 09/11/17 07:00 Total Protein 7.3 g/dl (6.4-8.2) 09/11/17 07:00 Albumin 3.1 g/dl (3.4-5.0) L 09/11/17 07:00 Urine Color Yellow 09/10/17 Unknown Urine Appearance Clear 09/10/17 Unknown Urine pH 5.0 (5.0-8.0) 09/10/17 Unknown Ur Specific [place] 1.028 (1.001-1.035) 09/10/17 Unknown Urine Protein 1+ (NEGATIVE) H 09/10/17 Unknown Urine Glucose (UA) Negative (NEGATIVE) 09/10/17 Unknown Urine Ketones Negative (NEGATIVE) 09/10/17 Unknown Urine Blood Negative (NEGATIVE) 09/10/17 Unknown Urine Nitrite Negative (NEGATIVE) 09/10/17 Unknown Urine Bilirubin Negative (<2.0 mg/dL) 09/10/17 Unknown Urine Urobilinogen 4.0 e.u/dl mg/dL (0.2-1.0) 09/10/17 Unknown Ur Leukocyte Esterase Trace (NEGATIVE) 09/10/17 Unknown Urine WBC (Auto) 12 /hpf (3-5) 09/10/17 Unknown Urine RBC (Auto) 1 /hpf (0-3) 09/10/17 Unknown Ur Epithelial Cells Rare /HPF (FEW) 09/09/17 22:00 Urine Bacteria Many /hpf (NONE SEEN) 09/09/17 22:00 Urine Mucus Rare 09/10/17 Unknown RPR Titer Nonreactive (NONREACTIVE) 09/10/17 07:00 Assessment: 09/15/17 11:44 MEDICALLY STABLE Plan: D/C PT TODAY
--- NOTE | 2017-09-15 11:53 | DS ---
[facility] Detox Discharge Summary Admission Date: 09/09/17 Discharge Date: 09/15/17 - History Present History: Alcohol Dependence Additional Comments: DETOX COMPLETED. ALERT O X 3. NAD. PT DECLINED REHAB BED HERE WHEN OFFERED PER COUNSELOR PARMJIT KIRBY. WANTS TO GO HOME. PT TO FOLLOW UP WITH HIS PCP AT [facility] [place]. PT REPORTS HE HAS OWN MEDS. Pertinent Past History: PLEASE SEE DX BELOW - Physical Exam Results Vital Signs: Vital Signs Temperature 97.6 F 09/15/17 09:24 Pulse Rate 72 09/15/17 09:24 Respiratory Rate 18 09/15/17 09:24 Blood Pressure 121/83 09/15/17 09:24 O2 Sat by Pulse Oximetry (%) Pertinent Admission Physical Exam Findings: WITHDRAWAL SX Laboratory Last Values WBC 4.4 K/mm3 (4.0-10.0) D 09/11/17 07:00 RBC 4.20 M/mm3 (4.00-5.60) 09/11/17 07:00 Hgb 14.3 GM/dL (11.7-16.9) 09/11/17 07:00 Hct 42.1 % (35.4-49) 09/11/17 07:00 MCV 100.3 fl (80-96) H 09/11/17 07:00 MCH 34.0 pg (25.7-33.7) H 09/11/17 07:00 MCHC 33.9 g/dl (32.0-35.9) 09/11/17 07:00 RDW 13.4 % (11.9-15.9) 09/11/17 07:00 Plt Count 121 K/MM3 (134-434) L 09/11/17 07:00 MPV 9.7 fl (7.5-11.1) 09/11/17 07:00 Sodium 141 mmol/L (136-145) 09/11/17 07:00 Potassium 4.0 mmol/L (3.5-5.1) 09/11/17 07:00 Chloride 109 mmol/L (98-107) H 09/11/17 07:00 Carbon Dioxide 27 mmol/L (21-32) 09/11/17 07:00 Anion Gap 5 (8-16) L 09/11/17 07:00 BUN 20 mg/dL (7-18) H 09/11/17 07:00 Creatinine 1.1 mg/dL (0.7-1.3) D 09/11/17 07:00 Creat Clearance w eGFR > 60 (>60) 09/11/17 07:00 Random Glucose 80 mg/dL (74-106) 09/11/17 07:00 Calcium 8.2 mg/dL (8.5-10.1) L 09/11/17 07:00 Total Bilirubin 0.4 mg/dL (0.2-1.0) D 09/11/17 07:00 AST 21 U/L (15-37) 09/11/17 07:00 ALT 25 U/L (12-78) D 09/11/17 07:00 Alkaline Phosphatase 79 U/L (45-117) 09/11/17 07:00 Total Protein 7.3 g/dl (6.4-8.2) 09/11/17 07:00 Albumin 3.1 g/dl (3.4-5.0) L 09/11/17 07:00 Urine Color Yellow 09/10/17 Unknown Urine Appearance Clear 09/10/17 Unknown Urine pH 5.0 (5.0-8.0) 09/10/17 Unknown Ur Specific [place] 1.028 (1.001-1.035) 09/10/17 Unknown Urine Protein 1+ (NEGATIVE) H 09/10/17 Unknown Urine Glucose (UA) Negative (NEGATIVE) 09/10/17 Unknown Urine Ketones Negative (NEGATIVE) 09/10/17 Unknown Urine Blood Negative (NEGATIVE) 09/10/17 Unknown Urine Nitrite Negative (NEGATIVE) 09/10/17 Unknown Urine Bilirubin Negative (<2.0 mg/dL) 09/10/17 Unknown Urine Urobilinogen 4.0 e.u/dl mg/dL (0.2-1.0) 09/10/17 Unknown Ur Leukocyte Esterase Trace (NEGATIVE) 09/10/17 Unknown Urine WBC (Auto) 12 /hpf (3-5) 09/10/17 Unknown Urine RBC (Auto) 1 /hpf (0-3) 09/10/17 Unknown Ur Epithelial Cells Rare /HPF (FEW) 09/09/17 22:00 Urine Bacteria Many /hpf (NONE SEEN) 09/09/17 22:00 Urine Mucus Rare 09/10/17 Unknown RPR Titer Nonreactive (NONREACTIVE) 09/10/17 07:00 - Treatment Hospital Course: Detox Protocol Followed, Detoxed Safely, Responded well, Discharged Condition Good, Rehab Referral Accepted Patient has Accepted a Rehab Referral to: [facility] - Medication Discharge Medications: Ambulatory Orders Abacavir Sulfate [Ziagen] 300 mg PO BID 06/14/11 Tenofovir Disoproxil Fumarate [Viread -] 300 mg PO DAILY 06/14/11 Lopinavir/Ritonavir [Kaletra 200-50 mg Tablet] 2 tab PO BID 03/08/15 - Diagnosis (1) Alcohol dependence with withdrawal Status: Acute Qualifiers: Complication of substance-induced condition: uncomplicated Qualified Code(s ): F10.230 - Alcohol dependence with withdrawal, uncomplicated (2) HIV (human immunodeficiency virus infection) Status: Chronic (3) Tremor due to drug withdrawal Status: Acute (4) Weight decrease Status: Acute (5) Cocaine dependence Status: Acute Qualifiers: Substance use status: uncomplicated Qualified Code(s): F14.20 - Cocaine dependence, uncomplicated (6) HIV disease Status: Chronic (7) Body aches Status: Acute (8) UTI (urinary tract infection) Status: Acute Qualifiers: Urinary tract infection type: site unspecified (9) Abnormal urinalysis Status: Acute - AMA Did Patient Leave Against Medical Advice: No
== END 2017-09-15 11:35 | disposition home or self-care (01) | DRG 774 ==
LOC: YASAS 14:21 → Y3N 18:35
PROVIDERS: ADMIT Internal Medicine; ATTEND Internal Medicine
PROC: HZ2ZZZZ Detoxification Services for Substance Abuse Treatment (ICD-10-PCS; principal; 2017-09-09)
DX: F10.230 Alcohol dependence with withdrawal, uncomplicated (principal); F14.20 Cocaine dependence, uncomplicated; F17.210 Nicotine dependence, cigarettes, uncomplicated; F19.24 Other psychoactive substance dependence with psychoactive substance-induced mood disorder; F32.9 Major depressive disorder, single episode, unspecified; G47.00 Insomnia, unspecified; G25.1 Drug-induced tremor; R52 Pain, unspecified; N39.0 Urinary tract infection, site not specified; R63.4 Abnormal weight loss; Z68.20 Body mass index [BMI] 20.0-20.9, adult; R82.90 Unspecified abnormal findings in urine; Z21 Asymptomatic human immunodeficiency virus [HIV] infection status
CPT/HCPCS: 36415; 80053; 81003; 81015; 85027; 86593; 93005; 93010; J0475